=== PATIENT | female | born 1985 | race Caucasian/White ===

== ENCOUNTER 2019-06-25 10:09 | Emergency (ER) | payer OTHER, SELFPAY ==
[2019-06-25 10:48] VITALS: BP 118/76; PULSE 113; RESP 12; TEMP 36.7; O2SAT 100
[2019-06-25 11:01] LABS: INR 0.9 (0.9-1.3); Prothrombin Time 10.8 SECONDS (10.1-12.7)
[2019-06-25 11:04] LABS: Add Manual Diff / Slide Review NO; Basophils Absolute Auto 0 /uL (0-100); Basophils Percent Auto 0.4 % (0-2); Eosinophils Absolute Auto 100 /uL (0-450); Eosinophils Percent Auto 0.7 % (2-4); Hematocrit 45.2 % (36-46); Hemoglobin 15.5 g/dL (12.0-16.0); Lymphocytes Absolute Auto 1400 /uL (1100-4500); Lymphocytes Percent Auto 17.5 % (25-40); Mean Corpuscular HGB Conc 34.3 % (30-36); Mean Corpuscular Hemoglobin 31.9 PG (26-34); Mean Corpuscular Volume 93.1 fL (80-100); Monocytes Absolute Auto 400 /uL (0-900); Monocytes Percent Auto 5.5 % (3-14); Neutrophils Absolute Auto 5900 /uL (1500-7000); Neutrophils Percent Auto 75.9 % (50-75); PTT Partial Thromboplastin Tim 35 SECONDS (26.4-36.2); Platelet Count 213 X10^3/uL (150-400); Red Blood Cell Count 4.85 X10^6/uL (4.0-5.2); Red Cell Distribution Width 12.8 % (11.6-14.8); White Blood Cell Count 7.8 X10^3/uL (4.5-11.0)
[2019-06-25 11:06] LABS: Alanine Aminotransferase 20 IU/L (<35); Albumin 4.3 g/dL (3.5-5.0); Albumin Globulin Ratio 1.2 (1.0-2.8); Alkaline Phosphatase 58 U/L (38-126); Aspartate Aminotransferase 32 IU/L (14-36); BUN Creatinine Ratio 17.9 (6-22); Bilirubin Total 0.8 mg/dL (0.2-1.3); Blood Urea Nitrogen 12 mg/dL (7-17); Carbon Dioxide 28 mmol/L (22-32); Chloride 103 mmol/L (98-107); Estimated Glomerular Filt Rate > 60.0 mL/min (>60); Globulin 3.5 g/dL (1.7-4.1); Glucose 84 mg/dL (70-100); HEMOLYSIS 45 (0-50); Lipase 93 U/L (23-300); Potassium 4.2 mmol/L (3.4-5.1); Sodium 137 mmol/L (137-145); Total Protein 7.8 g/dL (6.3-8.2)
--- NOTE | 2019-06-25 11:52 | DI.US.S_ITS ---
PROCEDURE: US ABDOMEN LIMITED INDICATIONS: EPIGASTRIC AND UPPER ABDOMINAL PAIN WITH NAUSEA TECHNIQUE: Real-time focused scanning was performed of the abdomen, with image documentation. COMPARISON: None. FINDINGS: Liver measures 15.2 cm. There is a diffusely echogenic lesion in the right lobe measuring 1.3 x 1.2 x 1.7 cm, likely representing a hemangioma. Gallbladder is unremarkable. No gallstones or gallbladder wall thickening or pain on examination. Visualized portions of the pancreas are unremarkable. Nondilated ducts. There hepatic duct measures 5 mm. IMPRESSION: 1. No evidence of gallbladder disease. 2. Probable incidental liver hemangioma. Dictated by: Alvarez Leyva M.D. on 06/25/2019 at 12:58 Approved by: Alvarez Leyva M.D. on 06/25/2019 at 13:00
[2019-06-25 11:59] LABS: Bacteria Urine Few (2-10); Culture Indicated Urine Cult Not Indicated; RBC Urine 0-1/HPF (0-5/HPF); WBC Urine 0-1/HPF (0-5/HPF)
--- NOTE | 2019-06-25 12:24 | ED_ITS ---
HPI - Abdominal Pain <Sukumar YeboahLANDRY adairP - Last Filed: 06/25/19 15:19> General Chief Complaint: Abdominal Pain Stated Complaint: abdominal pain for 3 days,hurts to breath Time Seen by Provider: 06/25/19 10:56 Source: patient Mode of arrival: Ambulatory Limitations: no limitations History of Present Illness HPI narrative: This is a 34-year-old female, nonsmoker, who presents to ED with non-radiating epigastric discomfort for last 3 days after eating [place] [employer]. Patient reports some nausea but no vomiting. Patient reports subjective fever yesterday and woke up in the middle of the night feeling sweaty. Pain worse with movement and taking a deep breath and describes as intermittent, sharp and aching and rated as 5/10. Patient denies chest pain or dyspnea or urinary symptoms. LMP about 5 days ago and she has at the end of her period. Patient has no history of abdominal surgery in the past. Related Data Home Medications Medication Instructions Recorded Confirmed [id number] 1 tab PO DAILY 06/25/19 06/25/19 [] ascorbic acid (vitamin C) [Vitamin 500 mg PO DAILY 06/25/19 06/25/19 C] calcium carbonate-vitamin D3 1 tab PO DAILY 06/25/19 06/25/19 [Calcium 500 + D] cetirizine [Zyrtec] 10 mg PO DAILY 06/25/19 06/25/19 vitamin B complex 1 tab PO DAILY 06/25/19 06/25/19 Previous Rx's Medication Instructions Recorded pantoprazole [Protonix] 20 mg PO DAILY #14 tab 06/25/19 Allergies Allergy/AdvReac Type Severity Reaction Status Date / Time No Known Drug Allergies Allergy Verified 06/25/19 13:43 Review of Systems <Sukumar Campos [employer] SAL[employer] REPRESENTATIVE - Last Filed: 06/25/19 15:19> Review of Systems Narrative: General: Denies (+) subjective fever, (+) chills, fatigue, malaise, sweats. HEENT: Denies sinus pain, ear pain, sore throat, difficulty swallowing, dizziness. Respiratory: Denies dyspnea, cough, wheezing, hemoptysis, sputum. Cardiovascular: Denies chest pain, palpitations, orthopnea, edema. Gastrointestinal: See HPI : Denies dysuria, frequency, incontinence, hematuria, urinary retention. Musculoskeletal: Denies weakness, joint pain or bony pain. Skin: Denies rash, skin lesions, or other. Neurologic: Denies weakness, headache, numbness, change in speech, confusion, seizures, incoordination. Psychiatric: No concerning psychosocial issues. 12-point review of systems is negative except for those stated above. Patient History <YUNI Singer - Last Filed: 06/25/19 15:19> Medical History No significant past medical history (Acute) Surgical History No pertinent past surgical history (Acute) Social History Smoking Status: Never smoker Smoking Status: Never smoker alcohol intake frequency: holidays/special occasions only Substance Use Type: does not use Exam <YUNI Singer - Last Filed: 06/25/19 15:19> Narrative Exam Narrative: GEN: Alert, oriented x 3, well appearing and nourished, and in no acute distress. Head: Normal cephalic, atraumatic. No scalp or temporal tenderness, palpable mass or rash. EYES: Pupils are equal, round, and reactive to light and accommodation. Extraocular muscles are intact bilaterally. There is no subconjunctival hemorrhage, exudate and sclera non-icteric. ENT: Bilateral auditory canals and tympanic membranes clear. Hearing grossly intact. Nose without bleeding, purulent discharge or deviation. Facial sinuses nontender to palpate. Mucous membrane moist, no mucosal lesion. Throat without erythema, tonsillar hypertrophy or exudate. Uvula in midline, airway patent. Neck: Trachea in midline. No JVD, non-tender without lymphadenopathy. No masses or thyroid megaly. Supple, non-tender and no meningeal signs. CARDIAC: Normal regular rate and rhythm without murmurs, gallops, or rubs. No chest wall tenderness. No peripheral edema, cyanosis or pallor. Capillary refill is less than 2 seconds. RESPIRATORY: Lungs are clear to auscultate bilaterally. No cough, wheezes, rales, or rhonchi. No stridor, respiratory distress, increase work of breathing, or accessary muscle used. ABD: Abdomen soft, positive for Hernandez's sign and TTP in bilateral upper abdomen and non-distended. No guarding or rebound tenderness to lower abdomen to palpate. Bowel sounds are normal in all 4 quadrants. There is no palpable mass es or organomegaly. EXT: Full painless ROM of all extremities with no loss of sensation, strength, effusion or edema. SKIN: Warm, dry, normal color for patient. No erythema, lesions or rash over visible areas. BACK: Nontender without deformity or crepitance. No flank tenderness. NEUROLOGICAL: Alert and oriented to place, time and person. Sensation and motor function intact bilaterally. No facial droops, dysphasia. PSYCHIATRIC: Good judgement and reason, without hallucinations, abnormal affect or abnormal behaviors during the examination. Initial Vital Signs Initial Vital Signs: Vital Signs Temperature 98.1 F 06/25/19 10:48 Pulse Rate 113 H 06/25/19 10:48 Respiratory Rate 12 06/25/19 10:48 Blood Pressure 118/76 06/25/19 10:48 Pulse Oximetry 100 06/25/19 10:48 <Alina Munoz MD - Last Filed: 06/25/19 17:56> Initial Vital Signs Initial Vital Signs: Vital Signs Temperature 98.1 F 06/25/19 10:48 Pulse Rate 113 H 06/25/19 10:48 Respiratory Rate 12 06/25/19 10:48 Blood Pressure 118/76 06/25/19 10:48 Pulse Oximetry 100 06/25/19 10:48 Scores <YUNI Singer - Last Filed: 06/25/19 15:19> GCS Payal coma scale eye opening: Spontaneous [place] coma scale verbal response: Orientated Pay[place] coma scale motor response: Obey commands [place] coma scale total score: 15 Course <YUNI Singer - Last Filed: 06/25/19 15:19> Orders Ordered: ED Orders 06/25/19 10:41 Complete Blood Count AUTO DIFF Stat Comprehensive Metabolic Panel Stat Lipase Stat Partial Thromboplastin Time Stat Prothrombin Time INR Stat 06/25/19 10:53 EKG-12 Lead Stat 06/25/19 11:33 Urine Microscopic Stat 06/25/19 11:52 US abdomen limited Stat Discontinued Medications Al Hydrox/Mg Hydrox/Simethicone 20 ml/ Lidocaine HCl 15 ml 0 ml PO NOW ONE Stop: 06/25/19 11:53 Last Admin: 06/25/19 12:56 Dose: 45 ml Documented by: LEONA Sodium Chloride (Normal Saline 0.9%) 1,000 mls @ 1,000 mls/hr IV BOLUS ONE Stop: 06/25/19 12:51 Last Infusion: 06/25/19 14:34 Dose: 0 mls/hr Documented by: Admin: 06/25/19 12:56 Dose: 1,000 mls/hr Documented by: LEONA Ketorolac Tromethamine (Toradol) 15 mg IV NOW ONE Stop: 06/25/19 13:37 Last Admin: 06/25/19 13:43 Dose: 15 mg Documented by: MARYLOU Pantoprazole Sodium (Protonix) 40 mg IV NOW ONE Stop: 06/25/19 11:53 Last Admin: 06/25/19 12:56 Dose: 40 mg Documented by: LEONA Vital Signs Vital signs: Vital Signs - 8 hr 06/25/19 10:48 06/25/19 13:51 06/25/19 15:00 Temperature 98.1 F Pulse Rate 113 H 82 96 H Respiratory Rate 12 16 18 Blood Pressure 118/76 103/57 L Blood Pressure [Left Arm] 103/69 Pulse Oximetry 100 100 100 <Alina Munoz MD - Last Filed: 06/25/19 17:56> Orders Ordered: ED Orders 06/25/19 10:41 Complete Blood Count AUTO DIFF Stat Comprehensive Metabolic Panel Stat Lipase Stat Partial Thromboplastin Time Stat Prothrombin Time INR Stat 06/25/19 10:53 EKG-12 Lead Stat 06/25/19 11:33 Urine Microscopic Stat 06/25/19 11:52 US abdomen limited Stat Discontinued Medications Al Hydrox/Mg Hydrox/Simethicone 20 ml/ Lidocaine HCl 15 ml 0 ml PO NOW ONE Stop: 06/25/19 11:53 Last Admin: 06/25/19 12:56 Dose: 45 ml Documented by: LEONA Sodium Chloride (Normal Saline 0.9%) 1,000 mls @ 1,000 mls/hr IV BOLUS ONE Stop: 06/25/19 12:51 Last Infusion: 06/25/19 14:34 Dose: 0 mls/hr Documented by: Admin: 06/25/19 12:56 Dose: 1,000 mls/hr Documented by: LEONA Ketorolac Tromethamine (Toradol) 15 mg IV NOW ONE Stop: 06/25/19 13:37 Last Admin: 06/25/19 13:43 Dose: 15 mg Documented by: MARYLOU Pantoprazole Sodium (Protonix) 40 mg IV NOW ONE Stop: 06/25/19 11:53 Last Admin: 06/25/19 12:56 Dose: 40 mg Documented by: LEONA Vital Signs Vital signs: Vital Signs - 8 hr 06/25/19 10:48 06/25/19 13:51 06/25/19 15:00 Temperature 98.1 F Pulse Rate 113 H 82 96 H Respiratory Rate 12 16 18 Blood Pressure 118/76 103/57 L Blood Pressure [Left Arm] 103/69 Pulse Oximetry 100 100 100 MDM - Abdominal Pain <Sukumar YUNI Campos - Last Filed: 06/25/19 15:19> Differential Diagnosis Differential diagnosis: Likely abdominal pain and other (cholecystitis, GERD) Medical Records Attestation: I reviewed the patient's medical records. Lab Data Attestation: I reviewed the patient's lab results. Result diagrams: 06/25/19 10:41 06/25/19 10:41 Labs: Lab Results 06/25/19 06/25/19 06/25/19 Range/Units 10:41 10:41 10:41 WBC 7.8 (4.5-11.0) X10^3/uL RBC 4.85 (4.0-5.2) X10^6/uL Hgb 15.5 (12.0-16.0) g/dL Hct 45.2 (36-46) % MCV 93.1 (80-100) fL MCH 31.9 (26-34) PG MCHC 34.3 (30-36) % RDW 12.8 (11.6-14.8) % Plt Count 213 (150-400) X10^3/uL Neut % (Auto) 75.9 H (50-75) % Lymph % (Auto) 17.5 L (25-40) % [place] % (Auto) 5.5 (3-14) % Eos % (Auto) 0.7 L (2-4) % Baso % (Auto) 0.4 (0-2) % Neut # (Auto) 5900 (6325-0887) /uL Lymph # (Auto) 1400 (2001-4149) /uL [place] # (Auto) 400 (0-900) /uL Eos # (Auto) 100 (0-450) /uL Baso # (Auto) 0 (0-100) /uL PT 10.8 (10.1-12.7) SECONDS INR 0.9 (0.9-1.3) APTT 35 (26.4-36.2) SECONDS Sodium 137 (137-145) mmol/L Potassium 4.2 (3.4-5.1) mmol/L Chloride 103 (98-107) mmol/L Carbon Dioxide 28 (22-32) mmol/L BUN 12 (7-17) mg/dL Creatinine 0.67 (0.52-1.04) mg/dL Estimated GFR > 60.0 (>60) mL/min BUN/Creatinine Ratio 17.9 (6-22) Glucose 84 (70-100) mg/dL Calcium 9.0 (8.4-10.2) mg/dL Total Bilirubin 0.8 (0.2-1.3) mg/dL AST 32 (14-36) IU/L ALT 20 (<35) IU/L Alkaline Phosphatase 58 (38-126) U/L Total Protein 7.8 (6.3-8.2) g/dL Albumin 4.3 (3.5-5.0) g/dL Globulin 3.5 (1.7-4.1) g/dL Albumin/Globulin Ratio 1.2 (1.0-2.8) Lipase 93 (23-300) U/L Urine RBC (0-5/HPF) Urine WBC (0-5/HPF) Urine Bacteria (None) Ur Culture Indicated? 06/25/19 Range/Units 11:33 WBC (4.5-11.0) X10^3/uL RBC (4.0-5.2) X10^6/uL Hgb (12.0-16.0) g/dL Hct (36-46) % MCV (80-100) fL MCH (26-34) PG MCHC (30-36) % RDW (11.6-14.8) % Plt Count (150-400) X10^3/uL Neut % (Auto) (50-75) % Lymph % (Auto) (25-40) % [place] % (Auto) (3-14) % Eos % (Auto) (2-4) % Baso % (Auto) (0-2) % Neut # (Auto) (4544-9149) /uL Lymph # (Auto) (8264-8300) /uL [place] # (Auto) (0-900) /uL Eos # (Auto) (0-450) /uL Baso # (Auto) (0-100) /uL PT (10.1-12.7) SECONDS INR (0.9-1.3) APTT (26.4-36.2) SECONDS Sodium (137-145) mmol/L Potassium (3.4-5.1) mmol/L Chloride (98-107) mmol/L Carbon Dioxide (22-32) mmol/L BUN (7-17) mg/dL Creatinine (0.52-1.04) mg/dL Estimated GFR (>60) mL/min BUN/Creatinine Ratio (6-22) Glucose (70-100) mg/dL Calcium (8.4-10.2) mg/dL Total Bilirubin (0.2-1.3) mg/dL AST (14-36) IU/L ALT (<35) IU/L Alkaline Phosphatase (38-126) U/L Total Protein (6.3-8.2) g/dL Albumin (3.5-5.0) g/dL Globulin (1.7-4.1) g/dL Albumin/Globulin Ratio (1.0-2.8) Lipase (23-300) U/L Urine RBC 0-1/hpf (0-5/HPF) Urine WBC 0-1/hpf (0-5/HPF) Urine Bacteria Few (2-10) H (None) Ur Culture Indicated? Cult not indicated Point of care testing: Point of Care Testing Test Results Negative Urine Dip Bedside Urine Glucose Negative Bedside Urine Bilirubin + 1 Bedside Urine Ketone - Negative Urine Specific [place] 1.015 Bedside Urine Occult Blood +/- Bedside Urine pH 7.5 Bedside Urine Protein +/- 15 Bedside Urine Urobilinogen - Negative Bedside Urine Nitrite - Negative Bedside Urine Leukocytes +/- 15 Esterase Imaging Data US - abdomen: Radiologist's Impression: [address] [id number] Ultrasound Report Signed Patient: Shelly Eid EMR#: [id number] : 1985Acct:[id number] Age/Sex: 34 / FDate of Service: 06/25/19 Loc: ED Accession Number: [id number] Procedure: US abdomen limited Ordering Provider: Sukumar Campos PROCEDURE: US ABDOMEN LIMITED INDICATIONS: EPIGASTRIC AND UPPER ABDOMINAL PAIN WITH NAUSEA TECHNIQUE: Real-time focused scanning was performed of the abdomen, with image documentation. COMPARISON: None. FINDINGS: Liver measures 15.2 cm. There is a diffusely echogenic lesion in the right lobe measuring 1.3 x 1.2 x 1.7 cm, likely representing a hemangioma. Gallbladder is unremarkable. No gallstones or gallbladder wall thickening or pain on examination. Visualized portions of the pancreas are unremarkable. Nondilated ducts. There hepatic duct measures 5 mm. IMPRESSION: 1. No evidence of gallbladder disease. 2. Probable incidental liver hemangioma. Dictated by: Alvarez Leyva M.D. on 06/25/2019 at 12:58 Approved by: Alvarez Leyva M.D. on 06/25/2019 at 13:00 ECG Data Attestation: I personally reviewed and interpreted this ECG as follows: Prior ECG tracings: not available for review Interpretation: Sinus rhythm at 88. Normal [place]. MT int 185, QRS dur 87, QT/QTC 351/[address] elevation or depression MDM Narrative Medical decision making narrative: This is a 34-year-old female who presents to ED with epigastric pain and bilateral upper quadrant pain for last 3 days with occasional nausea but no vomiting or diarrhea. Lab test for assuring, no leukocytosis, normal lipase, unremarkable chemistry test today. Patient had tachycardia upon arrival and she was provided with 1 L of IV fluid. Physical exam exhibited positive Hernandez's sign without rebound tenderness in bilateral lower quadrant. Ultrasound on upper abdomen obtained and shows no evidence of gallbladder disease with normal pancreas. Incidental finding liver hemangioma of 1.3 x 1.2 x 1.7 cm. It is unlikely the small size of liver hemangioma would cause patient's ongoing epigastric discomfort and nausea but advised to follow- up with her primary care physician for repeat imaging test if patient continues to have symptoms. UA was negative for and infection. EKG shows normal sinus rhythm without ST elevation or depression. Patient was medicated with GI cocktail, IV pantoprazole and Toradol which she found some improvement in discomfort. Patient discharged to home with 2 week duration of PPI and avoid foods that could cause gastritis, GERD symptoms. Return precautions were discussed with the patient and verbalized understanding and agreement with treatment plan. <Alina Munoz MD - Last Filed: 06/25/19 17:56> Lab Data Labs: Lab Results 06/25/19 06/25/19 06/25/19 Range/Units 10:41 10:41 10:41 WBC 7.8 (4.5-11.0) X10^3/uL RBC 4.85 (4.0-5.2) X10^6/uL Hgb 15.5 (12.0-16.0) g/dL Hct 45.2 (36-46) % MCV 93.1 (80-100) fL MCH 31.9 (26-34) PG MCHC 34.3 (30-36) % RDW 12.8 (11.6-14.8) % Plt Count 213 (150-400) X10^3/uL Neut % (Auto) 75.9 H (50-75) % Lymph % (Auto) 17.5 L (25-40) % [place] % (Auto) 5.5 (3-14) % Eos % (Auto) 0.7 L (2-4) % Baso % (Auto) 0.4 (0-2) % Neut # (Auto) 5900 (5878-8601) /uL Lymph # (Auto) 1400 (3773-2130) /uL [place] # (Auto) 400 (0-900) /uL Eos # (Auto) 100 (0-450) /uL Baso # (Auto) 0 (0-100) /uL PT 10.8 (10.1-12.7) SECONDS INR 0.9 (0.9-1.3) APTT 35 (26.4-36.2) SECONDS Sodium 137 (137-145) mmol/L Potassium 4.2 (3.4-5.1) mmol/L Chloride 103 (98-107) mmol/L Carbon Dioxide 28 (22-32) mmol/L BUN 12 (7-17) mg/dL Creatinine 0.67 (0.52-1.04) mg/dL Estimated GFR > 60.0 (>60) mL/min BUN/Creatinine Ratio 17.9 (6-22) Glucose 84 (70-100) mg/dL Calcium 9.0 (8.4-10.2) mg/dL Total Bilirubin 0.8 (0.2-1.3) mg/dL AST 32 (14-36) IU/L ALT 20 (<35) IU/L Alkaline Phosphatase 58 (38-126) U/L Total Protein 7.8 (6.3-8.2) g/dL Albumin 4.3 (3.5-5.0) g/dL Globulin 3.5 (1.7-4.1) g/dL Albumin/Globulin Ratio 1.2 (1.0-2.8) Lipase 93 (23-300) U/L Urine RBC (0-5/HPF) Urine WBC (0-5/HPF) Urine Bacteria (None) Ur Culture Indicated? 06/25/19 Range/Units 11:33 WBC (4.5-11.0) X10^3/uL RBC (4.0-5.2) X10^6/uL Hgb (12.0-16.0) g/dL Hct (36-46) % MCV (80-100) fL MCH (26-34) PG MCHC (30-36) % RDW (11.6-14.8) % Plt Count (150-400) X10^3/uL Neut % (Auto) (50-75) % Lymph % (Auto) (25-40) % [place] % (Auto) (3-14) % Eos % (Auto) (2-4) % Baso % (Auto) (0-2) % Neut # (Auto) (9186-0296) /uL Lymph # (Auto) (3114-7847) /uL [place] # (Auto) (0-900) /uL Eos # (Auto) (0-450) /uL Baso # (Auto) (0-100) /uL PT (10.1-12.7) SECONDS INR (0.9-1.3) APTT (26.4-36.2) SECONDS Sodium (137-145) mmol/L Potassium (3.4-5.1) mmol/L Chloride (98-107) mmol/L Carbon Dioxide (22-32) mmol/L BUN (7-17) mg/dL Creatinine (0.52-1.04) mg/dL Estimated GFR (>60) mL/min BUN/Creatinine Ratio (6-22) Glucose (70-100) mg/dL Calcium (8.4-10.2) mg/dL Total Bilirubin (0.2-1.3) mg/dL AST (14-36) IU/L ALT (<35) IU/L Alkaline Phosphatase (38-126) U/L Total Protein (6.3-8.2) g/dL Albumin (3.5-5.0) g/dL Globulin (1.7-4.1) g/dL Albumin/Globulin Ratio (1.0-2.8) Lipase (23-300) U/L Urine RBC 0-1/hpf (0-5/HPF) Urine WBC 0-1/hpf (0-5/HPF) Urine Bacteria Few (2-10) H (None) Ur Culture Indicated? Cult not indicated Point of care testing: Point of Care Testing Test Results Negative Urine Dip Bedside Urine Glucose Negative Bedside Urine Bilirubin + 1 Bedside Urine Ketone - Negative Urine Specific [place] 1.015 Bedside Urine Occult Blood +/- Bedside Urine pH 7.5 Bedside Urine Protein +/- 15 Bedside Urine Urobilinogen - Negative Bedside Urine Nitrite - Negative Bedside Urine Leukocytes +/- 15 Esterase Discharge Plan Departure Patient Disposition: Home Clinical Impression: Acute epigastric pain Discharge Date/Time: 06/25/19 15:53 Instructions: DI for Epigastric Pain Activity Restrictions/Additional Instructions: You have been diagnosed with [epigastric pain. Lab tests are reassuring. Ultrasound test shows unremarkable gallbladder and pancreas. No gallstones or wall thickening. Incidental finding of small size liver hemangioma. Your pain may is due to gastritis. Please share lab and ultrasound findings with her PCP for follow-up.]. What to do: *Take your medications as directed. You were medicated with IV fluids, Toradol, IV protonix and GI cocktail with some improvement in your discomfort. Please avoid fatty, spicy, acidic foot for next couple of weeks. Eat something that easily digests and hydrate well. Please take Protonix once a day for 2 weeks for your symptoms. *Follow up with your primary care provider in 2-3 days, call for an appointment. Let them know you were seen in the ED and that we asked you to be seen in follow up. *Return to ED if you have any new, worsening, or concerning symptoms, such as [chest pain, breathing difficulty, unable to tolerate fluids, severe pain, or any acute concerns.]. Prescriptions: New pantoprazole [Protonix] 20 mg tablet,delayed release (DR/EC) 20 mg PO DAILY Qty: 14 RF: 0 No Action cetirizine [Zyrtec] 10 mg Tablet 10 mg PO DAILY RF: 0 ascorbic acid (vitamin C) [Vitamin C] 500 mg Tablet,Chewable 500 mg PO DAILY RF: 0 vitamin B complex Tablet 1 tab PO DAILY RF: 0 calcium carbonate-vitamin D3 [Calcium 500 + D] 500 mg(1,250mg) -200 unit Tablet 1 tab PO DAILY RF: 0 28-800 mg-mcg Tablet 1 tab PO DAILY RF: 0 Referrals: [facility] [Outside] <Alina Munoz MD - Last Filed: 06/25/19 17:56> Sign Out Provider Sign Out Attestation: I was immediately available in the department for consultation throughout this patient's visit. I agree with documentation as above. Alina Munoz MD
[2019-06-25] MEDS: PANTOPRAZOLE 40 MG VIAL IV (12:56)
[2019-06-25] MEDS: SODIUM CHLORIDE 0.9% 1,000 ML 1000 ML IV (12:56)
[2019-06-25] MEDS: MAG HYDROX/ALUMINUM/SIMETH SUS 20 ML, LIDOCAINE VISCOUS 2% 15 ML PO (12:56)
[2019-06-25] MEDS: KETOROLAC 60 MG/2 ML VIAL 15 MG IV (13:43)
[2019-06-25 13:51] VITALS: BP 103/69; PULSE 82; RESP 16; O2SAT 100
[2019-06-25 15:00] VITALS: BP 103/57; PULSE 96; RESP 18; O2SAT 100
== END 2019-06-25 15:53 | disposition home or self-care (01) ==
PROVIDERS: Emergency Medicine; Emergency Provider Nurse Practitioner Family
DX: R10.13 Epigastric pain (principal); R00.0 Tachycardia, unspecified; R11.0 Nausea; D18.03 Hemangioma of intra-abdominal structures
CPT/HCPCS: 36415; 76705; 80053; 81003; 81015; 81025; 83690; 85025; 85610; 85730; 93005; 93010; 96361; 96374; 96375; 99284; C9113; J1885

== ENCOUNTER → 2020-09-15 09:22 | Outpatient (CLI) | payer OTHER, SELFPAY ==
--- NOTE | 2020-09-15 | DI.MG.S_ITS ---
BILATERAL DIGITAL DIAGNOSTIC MAMMOGRAM 3D/2D: 09/15/2020 CLINICAL: Baseline exam. Bilateral breast lumps. Comparison is made to exams dated: 04/15/2014 ultrasound, 07/23/2012 ultrasound, 03/06/2012 ultrasound biopsy, and 02/23/2012 ultrasound - outside facility. The tissue of both breasts is extremely dense, which lowers the sensitivity of mammography. There is an oval equal density mass with an indistinct margin in the right breast at 7 o'clock posterior depth. This likely correlates with palpable region. There is a biopsy clip associated with the mass. There is an oval equal density mass with an indistinct margin in the left breast at 9 o'clock middle depth. This likley correlates with palpable region. There is a biopsy clip associated with the mass. No other significant masses or calcifications are seen in either breast. IMPRESSION: INCOMPLETE: NEEDS ADDITIONAL IMAGING EVALUATION The oval equal density mass in the right breast at 7 o'clock posterior depth is indeterminate. An ultrasound is recommended. The oval equal density mass in the left breast at 9 o'clock middle depth is indeterminate. An ultrasound is recommended. There is no abnormality seen in the left axilla to correspond with the palpable abnormality in the left axilla, however, ultrasound is recommended. Ultrasound will be performed immediately following the current exam. This exam was interpreted at Station ID: [id number]. NOTE: For mammograms, a report in lay terms will be sent to the patient. Approximately 15% of breast malignancies will not be visualized mammographically. In the management of a palpable breast mass, a negative mammogram must not discourage biopsy of a clinically suspicious lesion. Electronically Signed By: Som Andino M.D. ddperico/:09/15/2020 11:17:45 ACR BI-RADS Category 0: Incomplete [id number]
--- NOTE | 2020-09-15 | DI.US.S_ITS ---
LIMITED ULTRASOUND OF RIGHT BREAST: 09/15/2020 CLINICAL: Palpable right breast lump. [facility], 07/23/2012 ultrasound, 03/06/2012 ultrasound biopsy, and 02/23/2012 ultrasound - outside facility. Color flow and real-time ultrasound of the right breast 7 o'clock region were performed on the areas of interest. There is a 2 cm x 0.9 cm x 1.6 cm oval mass in the right breast at 7 o'clock middle depth. This oval mass is hypoechoic. This correlates as palpated. Color flow imaging demonstrates that there is no increase in vascularity. 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 A follow-up ultrasound in 6 months is recommended to demonstrate stability. This exam was interpreted at Station ID: [id number]. Electronically Signed By: Som pierre/:09/15/2020 13:45:55 Entry: emily - 09/16/2020 09:37:34 Ultrasound BI-RADS: 3 Probably benign
--- NOTE | 2020-09-15 | DI.US.S_ITS ---
LIMITED ULTRASOUND OF LEFT BREAST: 09/15/2020 CLINICAL: Palpable left breast lump. [facility], 07/23/2012 ultrasound, 03/06/2012 ultrasound biopsy, and 02/23/2012 ultrasound - outside facility. Color flow and real-time ultrasound of the left breast 9 o'clock region were performed on the areas of interest. There is a 1.4 cm x 1.4 cm x 1.4 cm round mass with indistinct margins in the left breast at 9 o'clock middle depth. This round mass is hypoechoic with posterior acoustic shadowing. This correlates as palpated. Color flow imaging demonstrates that there is no increase in vascularity. IMPRESSION: PROBABLY BENIGN The 1.4 cm x 1.4 cm x 1.4 cm round mass in the left breast likely correlates to the previously biopsied fibroadenoma and is probably benign. A follow-up ultrasound in 6 months is recommended. A follow-up ultrasound in 6 months is recommended to demonstrate stability. This exam was interpreted at Station ID: [id number]. Electronically Signed By: Som Andino M.D. ddp/:09/15/2020 13:16:36 letter sent: Followup Recommended Ultrasound BI-RADS: 3 Probably benign
== END ==
PROVIDERS: Referring Provider Physician Assistant; Visit Provider Physician Assistant
DX: N63.24 Unspecified lump in the left breast, lower inner quadrant (principal); N63.21 Unspecified lump in the left breast, upper outer quadrant
CPT/HCPCS: 76642; 77066; G0279